=== PATIENT | male | born 1960 | race Caucasian/White ===

== ENCOUNTER → 2023-11-22 19:30 | Outpatient (REF) | payer OTHER, SELFPAY | LOC: MRI 19:30 | PROVIDERS: ATTENDING PHYSICIAN Chiropractor; FAMILY PHYSICIAN Family Medicine | DX: M25.551 Pain in right hip (principal) | CPT/HCPCS: 73721 ==

== ENCOUNTER 2024-12-02 04:50 | Emergency (ER) | payer OTHER, SELFPAY ==
[2024-12-02] VITALS (7 sets, daily range): BP systolic 128–148; BP diastolic 87–111; BMI 25.5
[2024-12-02 05:12] LABS: Hematocrit 41.4 % (39.0-52.0); Hemoglobin 14.7 g/dL (13.0-18.0); Mean Corp Hgb Conc. 35.5 g/dL (33.0-37.0); Mean Corpuscular Volume 88.8 fL (80.0-94.0); Nucleated Red Blood Cells % 0 % (-); Platelet Count 254 10^3/uL (130-400); Red Cell Dist. Width 11.8 % (11.5-14.5)
[2024-12-02 05:15] LABS: Urine Character Clear (Clear)
[2024-12-02 05:33] LABS: Blood Urea Nitrogen 12 mg/dl (9-20); Calcium 9.1 mg/dl (8.4-10.2); Carbon Dioxide 29 mmol/L (22-30); Chloride 98 mmol/L (98-107); Glucose 94 mg/dl (70-99); Potassium 4.1 mmol/L (3.5-5.1); Sodium 133 mmol/L (135-145); eGFR > 60.00
--- NOTE | 2024-12-02 07:22 | ED.GENMED ---
History of Present Illness
General
Chief Complaint: Back Pain
Source: patient
Exam Limitations: none
Time Seen by Provider: 12/02/24 07:01
History of Present Illness
History of Present Illness:
64-year-old male presents with throbbing left lower back pain that radiates to the front. This started about 8 or 9 days ago. No bowel or bladder dysfunction. No perianal anesthesia. No urinary symptoms. He was thought to pulled his back and
was stretching it out with physical therapy and tried Flexeril through the family doctor without relief. He is nauseous secondary to the pain. No leg pain. No other complaints at this time. He denies a fever.
Phy Exam
Physical Exam
Physical Exam:
General: Uncomfortable appearing male in no acute respiratory distress
HEENT: Normocephalic atraumatic
Heart: Regular rate and rhythm
Lungs: Clear no wheeze
Abdomen is soft tender to the lower mid abdomen.
Ext: no cyanosis or edema
Skin: Warm, no rash
Course
Orders/Labs/Results
Orders:
Orders
12/02/24 05:02
BMP [Basic Metabolic Panel] Urgent
Complete Blood Count/With Diff Urgent
Urinalysis Urgent
Date Specimen was Collected: 12/02/24
Time Specimen was Collected: 04:57
12/02/24 07:21
HYDROmorphone [Dilaudid] 0.5 mg IV NOW STA
Ketorolac [Toradol] 15 mg IV NOW STA
Ondansetron HCl [Zofran] 4 mg PO NOW STA
12/02/24 07:23
CT Abd/pelvis W Iv Cont Urgent
Comment:
Reason For Exam: low back pain and abodminal pain
12/02/24 08:15
diazePAM [Valium Injection] 5 mg IV NOW STA
Abnormal Lab Results
12/02/24
05:02
RBC 4.66 L 10^6/uL
(4.70-6.10)
MCH 31.5 H pg
(27.0-31.0)
Sodium 133 L mmol/L
(135-145)
12/02/24 05:02
12/02/24 05:02
Vital Signs
Initial and Last Documented VS:
Initial Vital Signs
Temp Pulse Resp BP Pulse Ox
97.8 F 90 26 148/110 100
12/02/24 04:52 12/02/24 04:52 12/02/24 04:52 12/02/24 04:52 12/02/24 04:52
Last Documented Vital Signs
Temp Pulse Resp BP Pulse Ox
97.8 F 90 26 143/95 100
12/02/24 04:52 12/02/24 04:52 12/02/24 04:52 12/02/24 09:23 12/02/24 09:30
MDM/Problems Addressed
Differential Diagnosis Includes:
Left lower back pain radiating to the front. Differential could include renal colic versus diverticulitis versus radiculopathy no red flags to suggest cauda equina
Urinalysis negative
Unlikely to be pyelonephritis. White count normal. Flexeril not helping. Will treat symptomatically and order CT of abdomen
*Pulse Oximetry
SaO2: 100
Oxygen Mode of Delivery: Room air
Patient hypoxic: no
*Critical Care Note
Total Time (30-74mins, 75-104mins- exclusive of procedures): Not Applicable
Update Note
Update Note:
CT of abdomen shows no acute intra-abdominal process. There is degenerative disease noted throughout the spine. Will prescribe prednisone and pain medicine for him to take at home with follow-up with nonoperative back pain specialist. Patient is
ambulatory. No red flags here today
ED Attending Note
-
Portions of this chart may have been created with voice recognition software.� Occasional wrong word or��sound alike� substitutions may have occurred due to the inherent limitations of voice recognition software.
Discharge Plan
Departure
Patient Disposition: Home (Routine Discharge)
Date of Disposition: 12/02/24
Time of Disposition: 10:29
Patient with high blood pressure during this ER visit?: No
Discharge Problem:
Back pain
Instructions: Low Back Pain (DC)
Prescriptions:
New
prednisone 10 mg Tablet
See Rx Instructions .ROUTE .COMPLEX Qty: 45 0RF
Rx Instructions:
Take By Mouth:
50 mg daily x3 days, 40 mg daily x3 days,
30 mg daily x3 days, 20 mg daily x3 days,
10 mg daily x3 days
oxycodone-acetaminophen [Percocet] 5-325 mg tablet
1 tab PO Q8H PRN (Reason: Pain) Qty: 9 0RF
No Action
valacyclovir [Valtrex] 1 gram tablet
1,000 mg PO Q8H 10 Days Qty: 30 0RF
prednisone 10 mg Tablet
See Rx Instructions .ROUTE .COMPLEX Qty: 30 0RF
Rx Instructions:
Take By Mouth:
40 mg daily x3 days, 30 mg daily x3 days,
20 mg daily x3 days, 10 mg daily x3 days.
Referrals:
Gregory Walden MD [Family Provider, Family Practice]
Booker Harrington MD [Active, Orthopedics]
Activity Restrictions/Additional Instructions:
Use medicine as directed. Follow-up with back pain specialist for further evaluation. Return if worse otherwise
Interventions
Interventions:
*Risk Screen - Suicide Last Done: 12/02/24 04:52
*General Assessment Last Done: 12/02/24 06:43
*Neglect/Abuse Screening Last Done: 12/02/24 04:52
*ED- Fall Risk Assessment Last Done: 12/02/24 06:43
*ED COVID-19 Vaccine History Last Done: 12/02/24 06:43
YU-Hqjfgm-Lajybiuupi Assessment Last Done: 12/02/24 06:43
ED-Musculoskeletal Assessment Last Done: 12/02/24 06:43
Discharge Date and Time
Print Language: KINYARWANDA
[2024-12-02] MEDS: DILAUDID 0.5 MG IV (07:27)
[2024-12-02] MEDS: TORADOL 15 MG IV (07:28)
[2024-12-02] MEDS: ZOFRAN 4 MG PO (07:29)
[2024-12-02] MEDS: VALIUM INJECTION 5 MG IV (08:24)
== END 2024-12-02 10:53 | disposition home or self-care (01) ==
LOC: EMR 04:50
PROVIDERS: Emergency Medicine; EMERGENCY PHYSICIAN Emergency Medicine; FAMILY PHYSICIAN Family Medicine
DX: M54.50 Low back pain, unspecified (principal); R11.0 Nausea
CPT/HCPCS: 96374; 96375; 99284; 74177; 80048; 81003; 85025; Q9967

== ENCOUNTER 2024-12-13 05:53 | Inpatient (IN) | payer OTHER, SELFPAY ==
[2024-12-13] VITALS (9 sets, daily range): BP systolic 144–164; BP diastolic 69–104; PULSE 82; BMI 24.9; BMI 24.2
--- NOTE | 2024-12-13 00:16 | EDRN ---
Pt complains of severe lower back pain along with nausea and cramping in lower abdomen. Pt here 12/02/24 for same symptoms and had a negative CT. Pt prescribed prednisone and percocet. Pt finished prednisone and says it helped. Pt tried the
percocet but it did not help his pain. Pt went to an ED in [place] on Saturday morning for same pain. Pt given meloxicam which pt says he cannot take because it is an NSAID. Pt given oxycodone 5mg and prednisone similar to what pt was started
on in this ED. Pt took 2 oxycodone last night which helped his pain but says pt returns. Pt currently on 20mg prednisone. Pt also given 5mg ambien tablets to help with sleep which he says does not help. Pt has been taking tylenol because it does
not hurt his stomach and says it helps 'a little bit.' No vomiting, fever/chills/cough, cp, sob, urinary symptoms, diarrhea. Last BM yesterday. Pt unable to have BM today because he says he took the 2 oxycodone last night.
--- NOTE | 2024-12-13 01:01 | ED.GENMED ---
History of Present Illness
General
Chief Complaint: Back Pain
Source: patient
Exam Limitations: none
Time Seen by Provider: 12/13/24 00:50
History of Present Illness
History of Present Illness:
64-year-old male presents for reevaluation with severe low back pain that radiates to the left side and posterior hip. He was here 10 days ago for the same. In the interim he did drive out of state and was seen at another emergency room while
visiting the other state. He has been prescribed oxycodone, prednisone, methocarbamol, meloxicam and has been taking Tylenol without any relief of this pain. He denies fevers. He notes he is constipated now from the narcotics. No urinary
dysfunction. No significant leg pain. No numbness. He is not sleeping because of the pain. No other complaints
Phy Exam
Physical Exam
Physical Exam:
General: Uncomfortable appearing male no acute respiratory distress
HEENT: Normocephalic atraumatic
Heart: Regular rate and rhythm
Lungs: Clear no wheeze
Musculoskeletal exam: The patient is tender over the midportion of the lumbar spine and to the left of the lumbar spine
Neurologic exam: Good strength to the lower extremities good sensation in the lower extremities
Course
Orders/Labs/Results
Orders:
Orders
12/13/24 00:59
HYDROmorphone [Dilaudid] 1 mg IV NOW STA
diazePAM [Valium Injection] 5 mg IV NOW STA
12/13/24 01:00
Dexamethasone Sod Phosphate [Decadron] 10 mg IV NOW STA
12/13/24 01:18
Complete Blood Count/With Diff Urgent
Comprehensive Metabolic Panel Urgent
12/13/24 01:38
Urinalysis Reflex To Culture Urgent
Date Specimen was Collected: 12/13/24
Time Specimen was Collected: 01:34
12/13/24 01:57
0.9% Sodium Chloride 500 ml [Nss] 500 ml IV BOLUS
12/13/24 01:58
Add On- LAB Urgent
Tests Added?: serum osm, urine osm, urine sodium
Abnormal Lab Results
12/13/24 12/13/24
01:18 01:38
RBC 4.31 L 10^6/uL
(4.70-6.10)
Hct 37.8 L %
(39.0-52.0)
MCH 31.3 H pg
(27.0-31.0)
RDW 11.3 L %
(11.5-14.5)
Absolute Monos (auto) 1.0 H 10^3/uL
(0.1-0.6)
Monocytes % 10.6 H %
(1.7-9.3)
Sodium 125 L mmol/L
(135-145)
Chloride 94 L mmol/L
(98-107)
AST 15 L U/L
(17-59)
Total Protein 6.0 L g/dl
(6.3-8.2)
Urine Bilirubin 1+ A
(Negative)
12/13/24 01:18
12/13/24 01:18
Vital Signs
Initial and Last Documented VS:
Initial Vital Signs
Pulse Resp Pulse Ox
68 24 100
12/13/24 00:00 12/13/24 00:00 12/13/24 00:00
Last Documented Vital Signs
Temp Pulse Resp BP Pulse Ox
98.2 F 75 16 161/99 100
12/13/24 00:23 12/13/24 00:23 12/13/24 00:23 12/13/24 00:23 12/13/24 01:05
MDM/Problems Addressed
Differential Diagnosis Includes:
Severe low back pain. This is his third ER visit in about 2 weeks for the same. Kflu-[id number]-[id number] and oral medications that have been prescribed are not helping. No fever to suggest infectious source. He had a CT scan performed last visit which
demonstrated degenerative disc disease with canal narrowing at L4-L5 and L5-S1.
No red flags of cauda equina. Will attempt to manage patient's pain however he may require admission as he is failing outpatient treatment
*Pulse Oximetry
SaO2: 100
Oxygen Mode of Delivery: Room air
Patient hypoxic: no
*Critical Care Note
Total Time (30-74mins, 75-104mins- exclusive of procedures): Not Applicable
Update Note
Update Note:
Patient with minimal relief after IV medication here. Third visit in about 10 days to the emergency room for severe low back pain. Unrelieved with outpatient management. Will admit to hospital
ED Attending Note
-
Portions of this chart may have been created with voice recognition software.� Occasional wrong word or��sound alike� substitutions may have occurred due to the inherent limitations of voice recognition software.
Discharge Plan
Departure
Patient Disposition: Admit
Date of Disposition: 12/13/24
Time of Disposition: 02:10
Presentation/result/management discussed w/ accepting MD/DO: Hospitalist
Discharge Problem:
Severe low back pain
Prescriptions:
No Action
lorazepam [Ativan] 1 mg Tablet
1 mg PO HS PRN (Reason: post herpetic neuralgia)
prednisone 20 mg Tablet
20 mg PO DAILY
zolpidem [Ambien] 5 mg Tablet
5 mg PO HS PRN (Reason: sleep)
oxycodone 5 mg Tablet
5 mg PO Q6H PRN (Reason: back/abd pain)
Referrals:
Gregory Walden MD [Family Provider, Family Practice]
Interventions
Interventions:
*Risk Screen - Suicide Last Done: 12/13/24 00:00
*General Assessment Last Done: 12/13/24 00:12
*Neglect/Abuse Screening Last Done: 12/13/24 00:00
*ED- Fall Risk Assessment Last Done: 12/13/24 00:12
ED-Musculoskeletal Assessment Last Done: 12/13/24 00:23
Discharge Date and Time
Print Language: LITHUANIAN
[2024-12-13] MEDS: VALIUM INJECTION 5 MG IV ×2 (01:25→05:08)
[2024-12-13] MEDS: DILAUDID 1 MG IV ×2 (01:28→05:12)
[2024-12-13 01:31] LABS: Hematocrit 37.8 % (39.0-52.0); Hemoglobin 13.5 g/dL (13.0-18.0); Mean Corp Hgb Conc. 35.7 g/dL (33.0-37.0); Mean Corpuscular Volume 87.7 fL (80.0-94.0); Nucleated Red Blood Cells % 0 % (-); Platelet Count 268 10^3/uL (130-400); Red Cell Dist. Width 11.3 % (11.5-14.5)
[2024-12-13] MEDS: DECADRON 10 MG IV (01:33)
--- NOTE | 2024-12-13 01:42 | EDRN ---
Pt very restless while this RN administered dilaudid and valium IV, unable to keep legs still due to pain. Valium given followed by dilaudid during which pt visibly relaxed, able to lie back on stretcher and said it was the most comfortable he has
felt in a long time. Pt drowsy.
[2024-12-13 01:47] LABS: Urine Character Clear (Clear)
[2024-12-13 01:51] LABS: ALT (SGPT) 23 U/L (0-50); AST (SGOT) 15 U/L (17-59); Albumin 3.9 g/dl (3.5-5.0); Alkaline Phosphatase 40 U/L (38-126); Blood Urea Nitrogen 13 mg/dl (9-20); Calcium 8.9 mg/dl (8.4-10.2); Carbon Dioxide 28 mmol/L (22-30); Chloride 94 mmol/L (98-107); Estimated Creatinine Clearance 111 ml/min; Glucose 88 mg/dl (70-99); Potassium 3.5 mmol/L (3.5-5.1); Sodium 125 mmol/L (135-145); Total Protein 6.0 g/dl (6.3-8.2); eGFR > 60.00
[2024-12-13] MEDS: NSS 500 IV (02:01)
--- NOTE | 2024-12-13 05:36 | HPS.HSE ---
Family Physician
-
Family Physician: Gregory Walden
Chief Complaint
-
Back Pain
History of Present Illness
Patient is a 64y M with no significant who presents to ED complaining of back pain. Patient states that he has had L lower back pain for about 10 days. He was seen in the ED here initially, then in [place] a few days ago and again this
evening. Patient states that he has chronic back pain that has been relatively well-managed with yoga, exercise, chiropractic, etc. he states that he was doing some gardening about two weeks ago and may have overdone it. He has been in PT
recently for R hip pain and this was going well. He denies any fall, injury, trauma, etc.
Patient has completed two courses of steroids and tried cyclobenzaprine, Tylenol, heat, etc without relief of his symptoms.
He has no LE weakness, numbness or tingling. No incontinence of bowel / bladder.
Medical History
Past Medical History
Past Medical History: Reports Other
Additional Past Medical History:
DDD
Chronic Back Pain
BPH
Past Surgical History: Reports None and Other
Social History
Tobacco: Non-smoker
Alcohol: Occasional
Drug: None
Family History
Family History: Not pertinent
Allergies / Home Medications
Allergies reflects when Allergies were last updated in [facility].
Home Medications with original date entered in [facility]
Allergy/Medication List:
Allergies
Allergy/AdvReac Type Severity Reaction Status Date / Time
NSAIDS (Non-Steroidal Allergy Nausea / Verified 12/13/24 00:04
Anti-Inflamma Vomiting
Penicillins Allergy Unknown Verified 12/13/24 00:04
Sulfa (Sulfonamide Allergy Unknown Verified 12/13/24 00:04
Antibiotics)
Home Medications
lorazepam 1 mg tablet (Ativan) 1 mg PO HS PRN post herpetic neuralgia 12/13/24
oxycodone 5 mg tablet 5 mg PO Q6H PRN back/abd pain 12/13/24
prednisone 20 mg tablet 20 mg PO DAILY 12/13/24
zolpidem 5 mg tablet (Ambien) 5 mg PO HS PRN sleep 12/13/24
Review of Systems
-
History Source: Patient
Constitutional: Denies Fever or Chills
Respiratory: Denies Cough or Trouble Breathing
Cardiac: Denies Chest Pain or Palpitations
Abdomen/GI: Reports Nausea; Denies Abdominal Pain or Vomiting
: Reports Flank Pain; Denies Dysuria or Frequency
Musculoskeletal: Denies Joint Pain or Edema
Neurological: Denies Dizzy or Headache
Psych: Denies Depression or Anxiety
Physical Exam
Vital Signs
Vital Signs
Temp Pulse Resp BP Pulse Ox
98.2 F 78 16 162/78 99
12/13/24 00:23 12/13/24 05:05 12/13/24 05:05 12/13/24 05:05 12/13/24 05:05
Physical Exam
General: Other (64y M in mild distress due to pain.)
HEENT: Moist mucous membranes and PERRLA
Respiratory: Clear; No Wheezes, Rales or Rhonchi
Cardiac: S1/S2 and Regular Rhythm; No Murmur
GI: Soft, Non Tender, Non Distended and Normal Bowel Sounds
Musculoskeletal: No Clubbing, No Cyanosis, No Edema and Other (Tenderness and spasm along L paraspinal column. No spinous process tenderness. Normal SLR.)
Neuro: AO x 3
Laboratory Results
-
12/13/24 01:18
12/13/24 01:18
Laboratory Results
Total Bilirubin 0.8 mg/dl (0.2-1.3) 12/13/24 01:18
AST 15 U/L (17-59) L 12/13/24 01:18
ALT 23 U/L (0-50) 12/13/24 01:18
Alkaline Phosphatase 40 U/L (38-126) 12/13/24 01:18
Impression/Plan
-
A/P: Patient is a 64y M with PMH significant for back pain who presents with uncontrolled back pain.
Hyponatremia
- Admit for further evaluation and treatment.
- Na level today is 125 and was 132 during prior visit.
- Suspect this is secondary to ADH release / uncontrolled pain.
- Patient also reports that he has been drinking large amounts of water to try and prevent constipation related to opioid meds.
- Fluid restriction.
- Check TFTS, cortisol, etc given elevated urinary sodium.
- Follow for improvement in Na with pain control, fluid restriction.
- Nephrology evaluation if hyponatremia worsens / persists.
Lumbar Spasm / Lumbago
- Consistent with muscle spasm. No concerning symptoms for spinal involvement.
- No incontinence, LE weakness, radicular symptoms, etc.
- Valium, heat application, Tylenol +/- opioids for pain control.
- Patient reports intolerance to NSAIDs.
- PT evaluation in AM.
- Follow-up with Pain Management / Sports Med as an outpatient.
DVT prophylaxis: SCDs
Code Status: Full
--- NOTE | 2024-12-13 09:40 | W.PN.HOSP.TC ---
Today's Communication/Plan
-
see A/P
Assessment / Plan
Assessment / Plan
HPI: 64 yo M with no significant who presented to ED complaining of back pain. Patient states that he has had L lower back pain for about 10 days. He was seen in the ED here initially, then in [place] a few days ago and again this admission.
Patient states that he has chronic back pain that has been relatively well-managed with yoga, exercise, chiropractic, etc. He states that he was doing some gardening about two weeks ago and may have overdone it. He has been in PT recently for R hip
pain and this was going well. He denies any fall, injury, trauma, etc.
Patient has completed two courses of steroids and tried cyclobenzaprine, Tylenol, heat, etc without relief of his symptoms.
He has no LE weakness, numbness or tingling. No incontinence of bowel / bladder.
A/P:
# Hyponatremia, 2/2 SIADH 2/2 uncontrolled pain.
Patient also reports that he has been drinking large amounts of water to try and prevent constipation related to opioid meds.
Na level at 125 on admission, was 132 from prior visit.
urine Osm and sodium level elevated
Cont Fluid restriction at 40 oz
Check TFTS, cortisol level, etc given elevated urinary sodium.
Follow for improvement in Na with pain control, fluid restriction.
Nephrology evaluation if hyponatremia worsens / persists.
# Acute on chronic lower back pain, ?Lumbar Spasm / Lumbago
No incontinence, LE weakness, radicular symptoms, etc.
Pt c/o acute lower back pain that is not resolving with previous modalities such as PT, flexeril etc.
Check MRI Lumbar spine with and without contrast
Cont Valium, heat application, Tylenol +/- opioids for pain control.
Patient reports intolerance to NSAIDs.
PT evaluation
Follow-up with Pain Management / Sports Med as an outpatient.
DVT prophylaxis: SCDs
Code Status: Full
Anticipated Discharge: 24 - 48 hours
Subjective/Interval History
-
Date of Service: December 13, 2024
Objective Data
-
Labs:
Laboratory Results
12/13/24
01:18
WBC 9.1
Hgb 13.5
Hct 37.8 L
Plt Count 268
Sodium 125 L
Potassium 3.5
Chloride 94 L
Carbon Dioxide 28
BUN 13
Creatinine 0.8
Glucose 88
Calcium 8.9
Total Bilirubin 0.8
AST 15 L
ALT 23
Alkaline Phosphatase 40
Vital Signs:
Vital Signs
Temp Pulse Resp BP Pulse Ox
36.7 C 70 20 164/104 99
12/13/24 07:30 12/13/24 07:30 12/13/24 07:30 12/13/24 07:30 12/13/24 07:30
Review of Systems
-
History Source: Patient
Musculoskeletal: Reports Other (Left lower back pain)
Physical Exam
-
General: Well Developed, Well Nourished, No Apparent Distress, Comfortable and Conversant; Negative Respiratory Distress
HEENT: Normocephalic, Atraumatic, Nose Appears Normal and Ears Appear Normal; Negative Oxygen
Respiratory: Clear to Auscultation and Non Labored Respirations; Negative Accessory Resp Muscle Use
Cardiac: Regular Rhythm and S1/S2
GI: Soft, Nontender, Nondistended and Normal Bowel Sounds
Skin: Warm and Dry
Neuro: Awake, Alert and Oriented
Psych: Calm and Intact Judgement/Insight
Data Reviewed
-
Labs: Labs Reviewed by me
[2024-12-13] MEDS: VALIUM 5 MG PO ×3 (10:23→22:04)
[2024-12-13] MEDS: TYLENOL 1000 MG PO ×3 (10:23→22:24)
[2024-12-13] MEDS: MILK OF MAGNESIA 30 ML PO (12:20)
[2024-12-13] MEDS: SENOKOT-S 1 TABLET PO ×2 (12:20→20:27)
[2024-12-13] MEDS: DILAUDID 0.5 MG IV (22:06)
[2024-12-13] MEDS: TYLENOL PO (22:28)
[2024-12-14] MEDS: ZOFRAN 4 MG IV ×4 (01:11→20:08)
[2024-12-14] MEDS: ROXICODONE 5 MG PO ×2 (01:12→09:56)
[2024-12-14] MEDS: DILAUDID 0.5 MG IV ×5 (03:04→20:07)
[2024-12-14 07:00] VITALS: BP 173/105
[2024-12-14] MEDS: TYLENOL 1000 MG PO ×3 (07:27→21:25)
[2024-12-14] MEDS: SENOKOT-S 1 TABLET PO ×2 (07:28→20:07)
[2024-12-14] MEDS: VALIUM 5 MG PO ×3 (07:38→21:25)
[2024-12-14 08:23] LABS: Hematocrit 41.4 % (39.0-52.0); Hemoglobin 14.9 g/dL (13.0-18.0); Mean Corp Hgb Conc. 36.0 g/dL (33.0-37.0); Mean Corpuscular Volume 87.2 fL (80.0-94.0); Platelet Count 278 10^3/uL (130-400); Red Cell Dist. Width 11.4 % (11.5-14.5)
[2024-12-14 08:49] LABS: Blood Urea Nitrogen 14 mg/dl (9-20); Calcium 9.0 mg/dl (8.4-10.2); Carbon Dioxide 27 mmol/L (22-30); Chloride 93 mmol/L (98-107); Estimated Creatinine Clearance 111 ml/min; Glucose 91 mg/dl (70-99); Potassium 3.8 mmol/L (3.5-5.1); Sodium 123 mmol/L (135-145); eGFR > 60.00
[2024-12-14 09:21] LABS: Cortisol, Random 11.9 ug/dl
--- NOTE | 2024-12-14 10:07 | W.PN.HOSP.TC ---
Today's Communication/Plan
-
see A/P
Assessment / Plan
Assessment / Plan
HPI: 64 yo M with no significant who presented to ED complaining of back pain. Patient states that he has had L lower back pain for about 10 days. He was seen in the ED here initially, then in [place] a few days ago and again this admission.
Patient states that he has chronic back pain that has been relatively well-managed with yoga, exercise, chiropractic, etc. He states that he was doing some gardening about two weeks ago and may have overdone it. He has been in PT recently for R hip
pain and this was going well. He denies any fall, injury, trauma, etc.
Patient has completed two courses of steroids and tried cyclobenzaprine, Tylenol, heat, etc without relief of his symptoms.
He has no LE weakness, numbness or tingling. No incontinence of bowel / bladder.
A/P:
# Hyponatremia, 2/2 SIADH 2/2 uncontrolled pain.
Patient also reports that he has been drinking large amounts of water to try and prevent constipation related to opioid meds.
Na level at 125 on admission to 123 today, was 132 from prior visit.
urine Osm and sodium level elevated
Cont Fluid restriction at 40 oz
TSH WNL at 1.32,
Random cortisol 11.9 could be 2/2 steroid use [employer]PER[employer] for back pain
Nephrology evaluation given hyponatremia worsens from 125 to 123
# Acute on chronic lower back pain due to severe spinal stenosis
No incontinence, LE weakness, radicular symptoms, etc.
Pt c/o acute lower back pain that is not resolving with previous modalities such as PT, flexeril etc.
MRI Lumbar spine showed Multilevel degenerative changes, worst at L3-4 with moderate to severe spinal canal stenosis
Cont Valium, heat application, Tylenol +/- opioids for pain control.
Patient reports intolerance to NSAIDs.
IR CS for NATO
PT evaluation recc outpt therapy
Follow-up with Pain Management / Sports Med as an outpatient.
DVT prophylaxis: SCDs
Code Status: Full
DW RN
DW SO at bedside
Anticipated Discharge: 24 - 48 hours
Subjective/Interval History
-
Date of Service: December 14, 2024
Objective Data
-
Labs:
Laboratory Results
12/14/24
07:49
WBC 8.3
Hgb 14.9
Hct 41.4
Plt Count 278
Sodium 123 L
Potassium 3.8
Chloride 93 L
Carbon Dioxide 27
BUN 14
Creatinine 0.8
Glucose 91
Calcium 9.0
Vital Signs:
Vital Signs
Temp Pulse Resp BP Pulse Ox
36.5 C 76 19 173/105 96
12/14/24 07:00 12/14/24 07:00 12/14/24 07:00 12/14/24 07:00 12/14/24 07:00
I&O
12/13/24 12/14/24 12/15/24
06:59 06:59 06:59
Intake Total 1260 / 1260
Balance 1260 / 1260
Review of Systems
-
History Source: Patient
Musculoskeletal: Reports Other (Left lower back pain)
Physical Exam
-
General: Well Developed, Well Nourished, No Apparent Distress, Comfortable and Conversant; Negative Respiratory Distress
HEENT: Normocephalic, Atraumatic, Nose Appears Normal and Ears Appear Normal; Negative Oxygen
Respiratory: Clear to Auscultation and Non Labored Respirations; Negative Accessory Resp Muscle Use
Cardiac: Regular Rhythm and S1/S2
GI: Soft, Nontender, Nondistended and Normal Bowel Sounds
Skin: Warm and Dry
Neuro: Awake, Alert and Oriented
Psych: Calm and Intact Judgement/Insight
Data Reviewed
-
MRI: Report Reviewed by me, Discussed with Patient and Discussed with Family
Labs: Labs Reviewed by me
--- NOTE | 2024-12-14 10:45 | W.CON.NEPH ---
Consultation
-
Date/Time Consultation Requested: 12/15/2019 10:00 AM
Date/Time Consultation Performed: 12/14/2024 11:00 AM
Requesting Provider: Dr. Burgos
Performing Provider: Dr. Aragon
Reason for Consultation: Hyponatremia
Medical History
-
Chief Complaint: Hyponatremia
History of Present Illness:
Patient is a 64y M with no significant who presents to ED complaining of back pain. Patient states that he has had L lower back pain for about 10 days. He was seen in the ED here initially, then in [place] a few days ago and again this
evening. Patient states that he has chronic back pain that has been relatively well-managed with yoga, exercise, chiropractic, etc. He states that he was doing some gardening about two weeks ago and may have overdone it. He has been in PT
recently for R hip pain and this was going well. He denies any fall, injury, trauma, etc.
Patient has completed two courses of steroids and tried cyclobenzaprine, Tylenol, heat, etc without relief of his symptoms.
He has no LE weakness, numbness or tingling. No incontinence of bowel / bladder. On presentation to the hospital he was profoundly hyponatremic with a serum sodium level of 123 nephrology was consulted.
Past Medical History
Degenerative disc disease chronic back pain BPH
Social History
Tobacco: Non-Smoker
Alcohol: Occasional
Drug: None
Family History
No chronic kidney disease
Allergies / Home Medications
Allergy/AdvReac Type Severity Reaction Status Date / Time
NSAIDS (Non-Steroidal Allergy Nausea / Verified 12/13/24 00:04
Anti-Inflamma Vomiting
Penicillins Allergy Unknown Verified 12/13/24 00:04
Sulfa (Sulfonamide Allergy Unknown Verified 12/13/24 00:04
Antibiotics)
�Medication �Instructions �Recorded �Confirmed �Type
lorazepam 1 mg tablet (Ativan) 1 mg PO HS PRN post herpetic 12/13/24 12/13/24 History
neuralgia
oxycodone 5 mg tablet 5 mg PO Q6H PRN back/abd pain 12/13/24 12/13/24 History
prednisone 20 mg tablet 20 mg PO DAILY back pain 12/13/24 12/13/24 History
zolpidem 5 mg tablet (Ambien) 5 mg PO HS PRN sleep 12/13/24 12/13/24 History
Review of Systems
-
History Source: Patient
All other systems: Negative unless noted
Abdomen/GI: Abdominal Pain and Nausea
Musculoskeletal: Other (Back pain)
Physical Exam
Vital Signs
Vital Signs
Temp Pulse Resp BP Pulse Ox
97.7 F 76 19 173/105 96
12/14/24 07:00 12/14/24 07:00 12/14/24 07:00 12/14/24 07:00 12/14/24 07:00
Lab Results
12/14/24 07:49
12/14/24 07:49
WBC 8.3 10^3/uL (4.8-10.8) 12/14/24 07:49
RBC 4.75 10^6/uL (4.70-6.10) 12/14/24 07:49
Hgb 14.9 g/dL (13.0-18.0) 12/14/24 07:49
Hct 41.4 % (39.0-52.0) 12/14/24 07:49
Plt Count 278 10^3/uL (130-400) 12/14/24 07:49
Sodium 123 mmol/L (135-145) L 12/14/24 07:49
Potassium 3.8 mmol/L (3.5-5.1) 12/14/24 07:49
Chloride 93 mmol/L (98-107) L 12/14/24 07:49
Carbon Dioxide 27 mmol/L (22-30) 12/14/24 07:49
BUN 14 mg/dl (9-20) 12/14/24 07:49
Creatinine 0.8 mg/dL (0.7-1.3) 12/14/24 07:49
eGFR > 60.00 12/14/24 07:49
Glucose 91 mg/dl (70-99) 12/14/24 07:49
Calcium 9.0 mg/dl (8.4-10.2) 12/14/24 07:49
Albumin 3.9 g/dl (3.5-5.0) 12/13/24 01:18
Physical Exam
General: AOx3, Nontoxic , NAD
HEENT: PERRL, EOMI, Anicteric, Conjunctivae Clear, Ear/Nose Intact, Hearing Normal, Oropharynx Clear/Moist, Dentition Intact, Facial Symmetry, Neck Supple, Neck: Trachea Midline, No JVD and No Thyromegaly, no Bruits
Respiratory: Clear to auscultation bilaterally with normal lung excursion
Cardiac: S1/S2 and Regular Rate/Rhythm
Breast: Deferred by me
Abdomen: Soft, Nontender, Nondistended, Normal Bowel Sounds and No Hepatosplenomegaly
Rectal: Deferred by Provider
Genito-urinary: No Costovertebral Tenderness
Extremities: No Clubbing, No Cyanosis and No Edema
Skin: No Rash or open lesions
Neuro: Nonfocal/Grossly Intact, CN II-XII (Intact) and Strength (Musculoskeletal exam 5 out of 5 both upper and lower extremities)
Hematologic/Lymphatic: No Cervical Lymphadenopathy, No Submandibular Lymphadenopathy and No Supraclavicular Lymphadenopathy
Psych: Mood/afflect pleasant, Insight/judgement good and Appropriate
Vascular: plus 2 pedal and radial pulses
Data Reviewed
-
MRI: Report Reviewed by me (Lumbar spine MRI reviewed: Multiple degenerative changes noted L3-L4 moderate to severe spinal canal stenosis)
Labs: Labs Reviewed by me (BMP, urine osm: 514, urine [id number])
Old Records: Reviewed (Old labs reviewed from December 02, 2024 sodium 133)
Assessment/Plan
-
Impression:
Euvolemic hyponatremia
Back pain/Lumbar spasm
Plan:
Hyponatremia:
- I agree that hyponatremia is likely due to SIADH in setting of significant back pain and increase fluid intake
- Urine osmolality greater than 500 supports SIADH
- Maintain fluid restriction of 1200cc/day
- Will provide 3% hypertonic saline for 250 cc at 30 cc/hr
- Adrenal insufficiency and thyroid function testing already completed
[2024-12-14] MEDS: SODIUM CHLORIDE 3% 250 IV ×2 (12:08→21:25)
--- NOTE | 2024-12-14 12:33 | CM ---
Patient seen at bedside
IA completed
Dx: hyponatremia, severe lower back pain
Lives in a 2 story home, [address], flight stairs to bedroom/bathroom
PLOF: Independent
Denies DME
Denies VN/Current with outpatient sports medicine
PT rec Outpatient PT
will need script
PCP: Gregory Walden
Pharmacy: [facility] [place]
PLAN: home, resume outpatient therapy when medically stable
[2024-12-14] MEDS: LIDOCAINE 4% PATCH 2 PATCH TOPICAL (14:45)
[2024-12-14 15:00] VITALS: BP 143/88
[2024-12-14 16:22] VITALS: BP 134/95; BP_SYST 90
[2024-12-14 16:23] LABS: INR 0.94; PT 12.9 Sec (11.4-14.6)
[2024-12-14 17:08] VITALS: BP 140/95; BP_SYST 77
[2024-12-14 17:15] VITALS: BP 140/95
[2024-12-14 18:41] LABS: Carbon Dioxide 25 mmol/L (22-30); Chloride 96 mmol/L (98-107); Potassium 4.4 mmol/L (3.5-5.1); Sodium 125 mmol/L (135-145)
[2024-12-14 23:27] VITALS: BP 155/88
[2024-12-15] MEDS: DILAUDID 0.5 MG IV (00:54)
[2024-12-15] MEDS: ZOFRAN 4 MG IV (02:37)
[2024-12-15] MEDS: ROXICODONE 5 MG PO (02:38)
[2024-12-15 07:20] LABS: Blood Urea Nitrogen 13 mg/dl (9-20); Calcium 8.8 mg/dl (8.4-10.2); Carbon Dioxide 26 mmol/L (22-30); Chloride 98 mmol/L (98-107); Estimated Creatinine Clearance 111 ml/min; Glucose 103 mg/dl (70-99); Potassium 4.6 mmol/L (3.5-5.1); Sodium 128 mmol/L (135-145); eGFR > 60.00
--- NOTE | 2024-12-15 07:21 | PTCARENOTE ---
NOTE SPECIALIST notified @ 2023 that NA level for 1800 was 125, New order received for IV 3% Sodium chloride @30 mls/hr, plan of care continues.
[2024-12-15 07:40] VITALS: BP 146/96
[2024-12-15] MEDS: VALIUM 5 MG PO (08:07)
[2024-12-15] MEDS: TYLENOL 1000 MG PO (08:07)
[2024-12-15] MEDS: LIDOCAINE 4% PATCH TOPICAL ×2 (08:07→08:31)
[2024-12-15] MEDS: SENOKOT-S 1 TABLET PO (08:07)
--- NOTE | 2024-12-15 10:55 | W.PN.HOSP.TC ---
Today's Communication/Plan
-
DC today
Assessment / Plan
Assessment / Plan
HPI: 64 yo M with no significant who presented to ED complaining of back pain. Patient states that he has had L lower back pain for about 10 days. He was seen in the ED here initially, then in [place] a few days ago and again this admission.
Patient states that he has chronic back pain that has been relatively well-managed with yoga, exercise, chiropractic, etc. He states that he was doing some gardening about two weeks ago and may have overdone it. He has been in PT recently for R hip
pain and this was going well. He denies any fall, injury, trauma, etc.
Patient has completed two courses of steroids and tried cyclobenzaprine, Tylenol, heat, etc without relief of his symptoms.
He has no LE weakness, numbness or tingling. No incontinence of bowel / bladder.
A/P:
# Hyponatremia, 2/2 SIADH 2/2 uncontrolled pain.
Patient also reports that he has been drinking large amounts of water to try and prevent constipation related to opioid meds.
Na level at 125 on admission, was 132 from prior visit.
Urine Osm and sodium level elevated
Sodium level at 128 today,
Cont Fluid restriction at 40 oz
s/p 3% NSS
TSH WNL at 1.32,
Random cortisol 11.9 could be 2/2 steroid use TELEPHONE MESSENGER for back pain
Appreciate Neuro input
Check sodium level outpt in 3-5 days with result to PCP
# Acute on chronic lower back pain due to severe spinal stenosis
No incontinence, LE weakness, radicular symptoms, etc.
Pt c/o acute lower back pain that is not resolving with previous modalities such as PT, flexeril etc.
MRI Lumbar spine showed Multilevel degenerative changes, worst at L3-4 with moderate to severe spinal canal stenosis
Cont Valium, heat application, Tylenol +/- opioids for pain control.
Patient reports intolerance to NSAIDs.
s/p NATO by IR for pain control with improved pain
PT evaluation recc outpt therapy
Follow-up with Pain Management / Sports Med as an outpatient. Pt has appointment in 2 days
DVT prophylaxis: SCDs
Code Status: Full
Anticipated Discharge: Today
Subjective/Interval History
-
Date of Service: December 15, 2024
Objective Data
-
Labs:
Laboratory Results
12/15/24
05:56
Sodium 128 L
Potassium 4.6
Chloride 98
Carbon Dioxide 26
BUN 13
Creatinine 0.8
Glucose 103 H
Calcium 8.8
Vital Signs:
Vital Signs
Temp Pulse Resp BP Pulse Ox
36.7 C 77 16 146/96 99
12/15/24 07:40 12/15/24 07:40 12/15/24 07:40 12/15/24 07:40 12/15/24 07:40
I&O
12/14/24 12/15/24 12/16/24
06:59 06:59 06:59
Intake Total 1260 / 1260 1020 / 1020
Balance 1260 / 1260 1020 / 1020
Review of Systems
-
History Source: Patient
Musculoskeletal: Reports Other (Left lower back pain has improved after NATO)
Physical Exam
-
General: Well Developed, Well Nourished, No Apparent Distress, Comfortable and Conversant; Negative Respiratory Distress
HEENT: Normocephalic, Atraumatic, Nose Appears Normal and Ears Appear Normal; Negative Oxygen
Respiratory: Clear to Auscultation and Non Labored Respirations; Negative Accessory Resp Muscle Use
Cardiac: Regular Rhythm and S1/S2
GI: Soft, Nontender, Nondistended and Normal Bowel Sounds
Skin: Warm and Dry
Neuro: Awake, Alert and Oriented
Psych: Calm and Intact Judgement/Insight
Data Reviewed
-
MRI: Report Reviewed by me, Discussed with Patient and Discussed with Family
Labs: Labs Reviewed by me
--- NOTE | 2024-12-15 12:07 | CM ---
Patient seen at bedside
IMM n/a
discharge today to home
no needs
PLAN: home, no needs
[facility] will transport
[2024-12-15 13:46] VITALS: BP 113/83
--- NOTE | 2024-12-15 14:25 | W.DCSUMMARY ---
Discharge Summary
Discharge Data
Date of Admission: 12/13/24
Date of Discharge: 12/15/24
Total time spent discharging patient (in min): 40
-
Pending Results: No
Hospital Course
Principal Diagnosis:
Acute on chronic lower back pain due to severe spinal stenosis
Hyponatremia due to SIADH
Chronic Diagnoses:�
Chronic lower back pain
Consultations:�
Interventional radiology
Nephrology
Procedures:�
Epidural steroid injection of the lower back for severe spinal stenosis
Clinical course:�
This is a 64 year old male with chronic lower back pain, who presented with worsening intractable lower back pain.
Problem 1:
Acute on chronic lower back pain due to severe spinal stenosis.
His MRI Lumbar spine showed Multilevel degenerative changes, worst at L3-4 with moderate to severe spinal canal stenosis.
Due to his severe pain, IR was consulted for epidural steroid injection which he received and improved his lower back pain.
He can continue with prior to admission oxycodone for pain control.
He has a follow-up appointment with pain management outpatient in 2 days.
Problem 2:
Hyponatremia, 2/2 SIADH 2/2 uncontrolled pain.
Sodium level improved from 125 on admission to 128 on the day of discharge.
He received 3% normal saline per nephrology.
He can check repeat sodium level within 1 week, result with PCP.
Discharge Plan
-
Patient Disposition: Home (Routine Discharge)
Discharge Diagnosis/Procedures: Hyponatremia due to SIADH due to uncontrolled pain;
Acute on chronic lower back pain due to severe spinal stenosis status post epidural steroid injection
Condition: Good
Diet: As tolerated
Activity: As tolerated
Driving Restrictions: As prior to admission
Blood Work: BMP in 3-5 days with your PCP
Referrals:
Gregory Walden MD [Family Provider, Family Practice] - in less than 1 week
Prescriptions:
Continued
lorazepam [Ativan] 1 mg Tablet
1 mg PO HS PRN (Reason: post herpetic neuralgia)
zolpidem [Ambien] 5 mg Tablet
5 mg PO HS PRN (Reason: sleep)
oxycodone 5 mg Tablet
5 mg PO Q6H PRN (Reason: back/abd pain)
Discontinued
prednisone 20 mg Tablet
20 mg PO DAILY
Discharge Orders:
Discharge Patient (As Directed); Ordered 12/15/24
Ordered By: Angelique Burgos
Discharge Date and Time
Discharge Date/Time: 12/15/24 14:00
Print Language: [id number]
== END 2024-12-15 14:00 | disposition home or self-care (01) | DRG 552 ==
LOC: 3 WEST ACU 05:53
PROVIDERS: Physician Assistant; Radiology Vascular & Interventional Radiology; ADMITTING PHYSICIAN Hospitalist; ATTENDING PHYSICIAN Internal Medicine; CONSULT PHYSICIAN Specialist; EMERGENCY PHYSICIAN Emergency Medicine; FAMILY PHYSICIAN Family Medicine
PROC: BR191ZZ Fluoroscopy of Lumbar Spine using Low Osmolar Contrast (ICD-10-PCS; 2024-12-15)
PROC: 3E0S3GC Introduction of Other Therapeutic Substance into Epidural Space, Percutaneous Approach (ICD-10-PCS; 2024-12-15)
DX: M48.061 Spinal stenosis, lumbar region without neurogenic claudication (principal); E22.2 Syndrome of inappropriate secretion of antidiuretic hormone; G89.29 Other chronic pain; K59.03 Drug induced constipation; T40.605A Adverse effect of unspecified narcotics, initial encounter; N40.0 Benign prostatic hyperplasia without lower urinary tract symptoms; Z88.0 Allergy status to penicillin; Z88.2 Allergy status to sulfonamides
CPT/HCPCS: 62323; 72158; 80048; 80051; 80053; 81003; 82024; 82533; 83930; 83935; 84300; 84443; 85025; 85027; 85610; 96361; 96374; 96375; 96376; 97162; 99284; A9575

== ENCOUNTER 2024-12-21 01:46 | Emergency (ER) | payer OTHER, SELFPAY ==
[2024-12-21 01:55] VITALS: BP 171/97
[2024-12-21 02:31] LABS: Urine Character Clear (Clear)
[2024-12-21 03:39] VITALS: BMI 25.2
[2024-12-21 03:52] LABS: Hematocrit 41.4 % (39.0-52.0); Hemoglobin 15.0 g/dL (13.0-18.0); Mean Corp Hgb Conc. 36.2 g/dL (33.0-37.0); Mean Corpuscular Volume 87.0 fL (80.0-94.0); Nucleated Red Blood Cells % 0 % (-); Platelet Count 269 10^3/uL (130-400); Red Cell Dist. Width 11.3 % (11.5-14.5)
[2024-12-21 04:04] VITALS: BP 165/92
--- NOTE | 2024-12-21 04:13 | ED.GENMED ---
History of Present Illness
General
Chief Complaint: Abdominal Pain
Source: patient, family (Significant other), previous radiology exam and previous hospital records (Recent hospitalization December 13 December 15 for treatment of intractable back pain related to spinal stenosis)
Exam Limitations: none
Time Seen by Provider: 12/21/24 04:09
Nursing documentation reviewed up to this point in time: agreed with
History of Present Illness
History of Present Illness:
This is a 64-year-old gentleman who has history of chronic pain related to postherpetic neuralgia left flank region, history of anxiety, he also has history of spinal stenosis with recent exacerbation of low back pain with several ED visits as well
as an acute hospitalization December 13 to December 15 for treatment of intractable low back pain. MRI showed severe spinal stenosis primarily at L3-L4. He underwent epidural steroid injection during that hospitalization with significant relief of
pain. Pain however returned within a day and a half and he has since followed up with pain management and was started on oral Dilaudid 4 mg tablets as well as baclofen. Despite taking these he continues with significant low back pain, nonradiating
and has become constipated. Last bowel movement was perhaps 2 to 3 days ago. He did pass a bowel movement this evening after self administering to fleets enemas. Despite doing so he has had significant upper abdominal pain primarily right upper
quadrant now left upper quadrant. He has had poor appetite, intermittent nausea, difficulty sleeping for weeks.
Past History
Past History
ED Past Medical History: Other (Lumbar spinal stenosis with chronic low back pain, BPH, anxiety, postherpetic neuralgia left flank)
ED Past Surgical History: None
Social History
Tobacco: Non-smoker
Alcohol: Occasional
Personal:
Living: with family
Employment: Employed
Family History
Family History: Other (Noncontributory)
Phy Exam
Physical Exam
Physical Exam:
GENERAL: 64-year-old gentleman appears his stated age, awake and alert, severely anxious, tearful, restless. Girlfriend at bedside.
EYE: pupils equal and reactive. anicteric
NECK: Supple, nontender, no meningismus, no significant adenopathy.
ENT: oral mucosa is moist. No rhinorrhea.
CARDIAC: Regular rate and rhythm. no murmur.
LUNGS: Clear breath sounds bilaterally, no acute respiratory distress, no wheezes/rales/rhonchi
ABDOMEN: Soft, nondistended, minimal generalized tenderness mid to upper abdomen with deep palpation only, no r/g, no cvat. No palpable masses, normoactive BS.
NEUROLOGICAL: Alert and oriented x3, no focal neuro deficits.
SKIN: Warm and dry, normal color, skin intact. No rash.
MUSCULOSKELETAL: No C/C/E. peripheral pulses are full and equal b/l. No palpable tenderness.
PSYCH: Severely anxious, restless, intermittently tearful.
Course
Orders/Labs/Results
Orders:
Orders
12/21/24 02:22
Urinalysis Reflex To Culture Urgent
Date Specimen was Collected: 12/21/24
Time Specimen was Collected: 02:21
12/21/24 03:40
Complete Blood Count/With Diff Urgent
Comprehensive Metabolic Panel Urgent
Lipase Urgent
12/21/24 04:12
0.9% Sodium Chloride 1000 ml [Nss] 1,000 ml IV BOLUS
diazePAM [Valium Injection] 5 mg IV NOW STA
12/21/24 04:13
CT Abd/pelvis W Iv Cont Urgent
Comment:
Reason For Exam: severe gen upper abd pain
12/21/24 05:25
HYDROmorphone [Dilaudid] 0.5 mg IV NOW STA
Abnormal Lab Results
12/21/24 12/21/24
02:22 03:40
MCH 31.5 H pg
(27.0-31.0)
RDW 11.3 L %
(11.5-14.5)
Absolute Monos (auto) 0.8 H 10^3/uL
(0.1-0.6)
Lymphocytes % 14.8 L %
(20.5-51.1)
Monocytes % 9.6 H %
(1.7-9.3)
Sodium 126 L mmol/L
(135-145)
Chloride 94 L mmol/L
(98-107)
BUN 7 L mg/dl
(9-20)
Glucose 100 H mg/dl
(70-99)
ALT 197 H U/L
(0-50)
Urine Ketones Trace A
(Negative)
12/21/24 03:40
12/21/24 03:40
Vital Signs
Initial and Last Documented VS:
Initial Vital Signs
Temp Pulse Resp BP Pulse Ox
97.9 F 83 24 171/97 99
12/21/24 01:55 12/21/24 01:55 12/21/24 01:55 12/21/24 01:55 12/21/24 01:55
Last Documented Vital Signs
Temp Pulse Resp BP Pulse Ox
97.9 F 79 13 165/92 100
12/21/24 01:55 12/21/24 04:30 12/21/24 04:30 12/21/24 04:04 12/21/24 04:30
MDM/Problems Addressed
Differential Diagnosis Includes:
Concern for opioid related constipation
Bowel obstruction
Biliary colic/cholecystitis
Pancreatitis
Renal colic/ureteric stone
Exacerbation of neuropathic pain
MDM/Problems Addressed:
Acute abdominal pain
Continued severe low back pain
Exacerbation of anxiety
Insomnia which I suspect is exacerbating pain as well as anxiety
Will check labs, plan for CT abdomen pelvis.
Will initiate IV fluids and give an IV dose of Valium for significant anxiety. Will plan for IV Dilaudid for pain.
Chronic conditions affecting care: Psychiatric illness (Anxiety) and Other (Spinal stenosis with chronic low back pain)
*Radiology
Radiology exam reviewed: radiology read reviewed
*Pulse Oximetry
SaO2: 99
Oxygen Mode of Delivery: Room air
Patient hypoxic: no
*Critical Care Note
Total Time (30-74mins, 75-104mins- exclusive of procedures): Not Applicable
Update Note
Update Note:
06:00
Patient is much more comfortable, much less anxious after an IV dose of Valium.
Continues with intermittent crampy abdominal pain but markedly improved.
Abdominal discomfort has improved further after an IV dose of Dilaudid.
Labs are unremarkable save for mild hyponatremia, similarly noted during recent hospitalization. Thought to be related to SIADH.
ALT is elevated, all other LFTs, bilirubin, alkaline phosphatase within normal limits. Lipase is normal. Urinalysis is unremarkable.
CT shows moderate constipation, stercoral colitis but no bowel obstruction.
Lengthy discussion regarding bowel regimen while taking opioids.
Recommend initiating daily fiber supplement such as Metamucil along with daily MiraLAX.
Continue to follow with pain management.
ED Attending Note
-
Portions of this chart may have been created with voice recognition software.� Occasional wrong word or��sound alike� substitutions may have occurred due to the inherent limitations of voice recognition software.
Discharge Plan
Departure
Patient Disposition: Home (Routine Discharge)
Date of Disposition: 12/21/24
Time of Disposition: 06:04
Patient with high blood pressure during this ER visit?: No
Condition: Good
Discharge Problem:
Acute opioid related constipation, Persistent exacerbation of low back pain, Acute anxiety
Instructions: Managing constipation from your medicines
Prescriptions:
No Action
lorazepam [Ativan] 1 mg Tablet
1 mg PO HS PRN (Reason: post herpetic neuralgia)
zolpidem [Ambien] 5 mg Tablet
5 mg PO HS PRN (Reason: sleep)
oxycodone 5 mg Tablet
5 mg PO Q6H PRN (Reason: back/abd pain)
Activity Restrictions/Additional Instructions:
Continue to follow-up with pain management.
Start a daily fiber supplement such as Metamucil, 2 heaping teaspoons in 8 ounces of water and along with this add 1 capful of MiraLAX.
Interventions
Interventions:
*Risk Screen - Suicide Last Done: 12/21/24 01:55
*General Assessment Last Done: 12/21/24 01:55
*Neglect/Abuse Screening Last Done: 12/21/24 03:20
*ED COVID-19 Vaccine History Last Done: 12/21/24 03:20
DX-Qwvfrs-Ditdvladuy Assessment Last Done: 12/21/24 03:46
Discharge Date and Time
Print Language: [id number]
[2024-12-21 04:18] LABS: ALT (SGPT) 197 U/L (0-50); AST (SGOT) 57 U/L (17-59); Albumin 4.7 g/dl (3.5-5.0); Alkaline Phosphatase 59 U/L (38-126); Blood Urea Nitrogen 7 mg/dl (9-20); Calcium 9.6 mg/dl (8.4-10.2); Carbon Dioxide 24 mmol/L (22-30); Chloride 94 mmol/L (98-107); Estimated Creatinine Clearance 111 ml/min; Glucose 100 mg/dl (70-99); Lipase 73 U/L (23-300); Potassium 3.7 mmol/L (3.5-5.1); Sodium 126 mmol/L (135-145); Total Protein 6.9 g/dl (6.3-8.2); eGFR > 60.00
[2024-12-21] MEDS: NSS 1000 IV (04:29)
[2024-12-21] MEDS: VALIUM INJECTION 5 MG IV (04:29)
[2024-12-21] MEDS: DILAUDID 0.5 MG IV (05:30)
== END 2024-12-21 07:10 | disposition home or self-care (01) ==
LOC: EMR 01:46
PROVIDERS: EMERGENCY PHYSICIAN Emergency Medicine; FAMILY PHYSICIAN Family Medicine
DX: K59.03 Drug induced constipation (principal); T40.2X5A Adverse effect of other opioids, initial encounter; M54.50 Low back pain, unspecified; F41.9 Anxiety disorder, unspecified; Y92.9 Unspecified place or not applicable; G47.00 Insomnia, unspecified; N40.0 Benign prostatic hyperplasia without lower urinary tract symptoms
CPT/HCPCS: 99284; 96374; 96375; 96361; 74177; 80053; 81003; 83690; 85025; Q9967